=== PATIENT | male | born 1945 | race Caucasian/White ===

== ENCOUNTER 2019-01-19 09:38 | Outpatient (CLI) | payer MEDICARE, MEDICAID | END 2019-01-19 23:59 | disposition home or self-care (01) | LOC: CARD DIAG 09:38 | PROVIDERS: ATTEND Psychiatry & Neurology Psychiatry | DX: F20.0 Paranoid schizophrenia (principal); R00.1 Bradycardia, unspecified; I51.7 Cardiomegaly | CPT/HCPCS: 93005 ==

== ENCOUNTER 2023-06-30 06:52 | Emergency (ER) | payer MEDICARE, MEDICAID ==
[~2023-06-30] VITALS: Ht 165.1 cm; Wt 62.7 kg
[2023-06-30 07:04] VITALS: TEMP 97.8
[2023-06-30 07:35] LABS: BASOPHILS % (AUTO) 0 % (0-1); EOSINOPHILS % (AUTO) 0 % (0-6); HEMATOCRIT 41.2 % (42.0-52.0); HEMOGLOBIN 13.5 g/dl (14.0-17.9); LYMPHOCYTES # (AUTO) 0.4 X10'3 (1.1-4.8); LYMPHOCYTES % (AUTO) 2.7 % (21-51); MEAN CORPUSCULAR HEMOGLOBIN 30.5 PG (27.0-31.0); MEAN CORPUSCULAR HGB CONC 32.7 g/dL (33.0-36.5); MEAN CORPUSCULAR VOLUME 93.4 FL (78-98); MEAN PLATELET VOLUME 10.2 FL (7.4-10.4); MONOCYTES # (AUTO) 0.7 X10'3 (0-0.9); MONOCYTES % (AUTO) 4.9 % (2-12); NEUTROPHILS # (AUTO) 13.4 X10'3 (1.8-7.7); NEUTROPHILS % (AUTO) 92.4 % (42-75); PLATELET COUNT 177 X10'3 (140-440); RED BLOOD COUNT 4.42 X10'6 (4.70-6.10); RED CELL DISTRIBUTION WIDTH 13.5 % (11.5-14.5); WHITE BLOOD COUNT 14.5 X10'3 (4.5-11.0)
[2023-06-30 07:55] LABS: APTT 29 SECONDS (22-32); INR 1.1 INR; PROTHROMBIN TIME 11.9 SECONDS (9.0-12.0)
[2023-06-30 08:09] LABS: ALANINE AMINOTRANSFERASE 60 U/L (12-78); ALBUMIN 4.1 G/DL (3.4-5.0); ALKALINE PHOSPHATASE 105 IU/L (46-116); ANION GAP 22 (8-16); ASPARTATE AMINO TRANSFERASE 113 U/L (10-37); BILIRUBIN,TOTAL 1.2 MG/DL (0.1-1.0); BLOOD UREA NITROGEN 41 MG/DL (7-18); BUN/CREATININE RATIO 27.7 (10.0-20.0); CALCIUM 9.1 MG/DL (8.5-10.1); CHLORIDE 102 MMOL/L (99-107); CREATININE 1.48 MG/DL (0.60-1.10); GLUCOSE 62 MG/DL (70-104); POTASSIUM 4.9 MMOL/L (3.5-5.1); SODIUM 141 MMOL/L (135-145); TOTAL CARBON DIOXIDE 16.6 MMOL/L (24-32); TOTAL PROTEIN 8.1 G/DL (6.4-8.2); eCRCL 38 ML/MIN; eGFR 46 ML/MIN
[2023-06-30 08:18] LABS: ETHANOL < 10 MG/DL (<10); MAGNESIUM 2.6 MG/DL (1.5-2.4); THYROID STIMULATING HORMONE 1.16 ulU/ml (0.34-4.50)
[2023-06-30 08:22] LABS: BILIRUBIN,DIRECT 0.4 MG/DL (0-0.3)
[2023-06-30] MEDS ORDERED: AZIT250T2 PO (08:41)
[2023-06-30] MEDS: azithromycin 250mg tablet PO ONE (08:49)
[2023-06-30 08:50] VITALS: BP 135/84; PULSE 75; RESP 16; O2SAT 98
[2023-06-30 09:04] LABS: BILIRUBIN,URINE SMALL (Neg); CLARITY,URINE CLEAR (Clear); COLOR,URINE YELLOW (Yellow); GLUCOSE, URINE NEGATIVE (Neg); KETONES,URINE >=80 mg/dl (Neg); LEUKOCYTE ESTERASE ,URINE NEGATIVE (Neg); NITRITES, URINE NEGATIVE (Neg); OCCULT BLOOD,URINE LARGE (Neg); PROTEIN,URINE 30 mg/dl (Neg); UROBILINOGEN,URINE 0.2 E.U/dL (0.2-1.0)
[2023-06-30 09:10] LABS: MUCUS STRANDS MODERATE /LPF (Neg); UA COLLECTION TYPE CLN CATCH MIDSTREAM
[2023-06-30 09:11] LABS: HYALINE CASTS >30 /LPF (NEGATIVE); RBC,URINE 20-50 /HPF (0-2); SQUAMOUS EPITHELIAL CELL,UR FEW /LPF (FEW)
[2023-06-30 09:12] LABS: BACTERIA,URINE FEW /HPF (Neg); WBC,URINE 0-4 /HPF (0-4)
[2023-06-30 09:20] LABS: URINE AMPHETAMINE SCREEN NEGATIVE (Neg); URINE BARBITUATE SCREEN NEGATIVE (Neg); URINE BENZODIAZEPINES SCREEN NEGATIVE (Neg); URINE CANNABINOID SCREEN POSITIVE (Neg); URINE COCAINE SCREEN NEGATIVE (Neg); URINE METHADONE SCREEN NEGATIVE (Neg); URINE OPIATE SCREEN NEGATIVE (Neg); URINE PHENCYCLIDINE SCREEN NEGATIVE (Neg)
== END 2023-06-30 08:51 | disposition home or self-care (01) ==
LOC: ER 06:52
DX: J18.1 Lobar pneumonia, unspecified organism (principal); E86.0 Dehydration; R21 Rash and other nonspecific skin eruption; R79.1 Abnormal coagulation profile; R79.89 Other specified abnormal findings of blood chemistry; Z79.2 Long term (current) use of antibiotics; Z85.72 Personal history of non-Hodgkin lymphomas
CPT/HCPCS: 36415; 71045; 80048; 80076; 80305; 80320; 81001; 83735; 84443; 85025; 85610; 85730; 99284